=== PATIENT | female | born 1970 | race African-American/Black ===

== ENCOUNTER 2021-05-22 14:33 | Emergency (ER) | payer BC, SELFPAY ==
--- NOTE | ~2021-05-22 | CT_ITS ---
EXAMINATION: CT abdomen pelvis w con DATE: 05/22/2021 17:18 INDICATION: Right-sided abdominal pain, vomiting and shortness of breath TECHNIQUE: Computed tomography (CT) of the abdomen and pelvis was performed with 100 mL Omnipaque-350 intravenous contrast. Automated exposure control and iterative reconstruction technique were employe d. The dose-length product was 403.04 mGy-cm. COMPARISON: None FINDINGS: Lung bases are clear. Heart size is normal. No pericardial or pleural effusion. Focal hepatic steatos is along the ligamentum teres. Gallbladder, spleen, pancreas, bilateral adrenal glands and kidneys ar e normal. Bladder is normal. Uterus and bilateral adnexa are unremarkable. Normal appendix. No bowel obstruction. Single diverticulum along the proximal sigmoid colon without adjacent inflammatory espana e to suggest diverticulitis. Diffuse mild fatty infiltration of the colonic wall likely related to sada dy habitus. No free intraperitoneal gas or fluid. No pathologically enlarged abdominal or pelvic lymp hadenopathy. Relatively symmetric subarticular screws at both sides of the bilateral sacroiliac joint spaces without definitive erosion which could be related to osteoarthritis or nonspecific chronic sa croiliitis. Moderate lumbar facet osteoarthritis. IMPRESSION: 1. No acute intra-abdominal/pelvic process. Reviewed, dictated and finalized at location A. BREAKER
--- NOTE | ~2021-05-22 | XR_ITS ---
EXAMINATION: XR chest 2V DATE: 05/22/2021 15:29 INDICATION: Chest tightness TECHNIQUE: PA and lateral views of the chest were obtained. COMPARISON: None FINDINGS: The lungs are clear with no focal airspace opacities, pulmonary edema, pleural effusion or pneumothor ax. The cardiomediastinal silhouette is normal. Visualized bones and soft tissues are unremarkable. IMPRESSION: 1. No acute cardiopulmonary disease. Reviewed, dictated and finalized at location A. ESS TIER
[2021-05-22 14:43] VITALS: BP 137/97; PULSE 110; RESP 18; TEMP 36.9; O2SAT 99
[2021-05-22 15:01] LABS: Basophils Percent Auto 0.7 % (0.2-1.2); Eosinophils Percent Auto 0.3 % (0-4.4); Hematocrit 40.7 % (37.0-47.0); Hemoglobin 13.1 g/dL (12.0-15.0); Immature Granulocyte Absolute 0.02 K/mm3 (0.00-0.031); Immature Granulocyte Percent A 0.3 % (0-0.5); Lymphocytes Absolute Auto 0.34 K/mm3 (0.9-3.2); Lymphocytes Percent Auto 5.6 % (18.3-44.2); Mean Corpuscular HGB Conc 32.2 g/dl (32-36); Mean Corpuscular Volume 93.3 fl (80-100); Mean Platelet Volume 10.2 fl (7.4-10.4); Monocytes Absolute Auto 0.3 K/mm3 (0.1-0.6); Monocytes Percent Auto 5.5 % (2.6-8.5); Neutrophils Absolute Auto 5.3 K/mm3 (1.3-6.7); Neutrophils Percent Auto 87.6 % (45.5-73.1); Platelet Count Result 192 k/mm3 (150-375); Red Blood Count 4.36 M/mm3 (4.2-5.4); Red Cell Distribution Width 14.1 % (11.5-14.5)
[2021-05-22] MEDS: ONDANSETRON INJ 4 MG/2 ML VIAL IV PUSH (15:01)
[2021-05-22] MEDS: SODIUM CHLORIDE 0.9% IV 1,000 ML 999 ML IV CONT (15:01)
--- NOTE | 2021-05-22 15:01 | ECG_ITS ---
Measurements Intervals [place] Rate: 94 P: 56 HI: 160 QRS: 32 QRSD: 78 T: 48 QT: 342 QTc: 429 Interpretive Statements SINUS RHYTHM MINIMAL VOLTAGE CRITERIA FOR LVH, CONSIDER NORMAL VARIANT [MEETS CRITERIA IN ONE OF: R(aVL), S(V1), R(V5), R(V5/V6)+S(V1)] NO PREVIOUS ECG AVAILABLE FOR COMPARISON Electronically Signed On 05-22-2021 19:35:44 [employer] by Gianna Andrews M.D.
--- NOTE | 2021-05-22 15:02 | ED.NAVMDI ---
HPI - Nausea/Vomiting/Diarrhea General Chief complaint: Nausea/Vomiting/Diarrhea Stated complaint: throwing up Time Seen by Provider: 05/22/21 14:38 Source: patient Mode of arrival: ambulatory Limitations: no limitations History of Present Illness HPI Narrative: This is a 51 year old female that presents to the ER for nausea and vomiting. Reports her daughter just got over the stomach flu. She started to feel unwell yesterday. Today she had several episodes of vomiting. Also reports chest congestion. Denies fever, sore throat, dysuria, or diarrhea. Related Data Allergies Allergy/AdvReac Type Severity Reaction Status Date / Time No Known Allergies Allergy Verified 05/22/21 15:01 Review of Systems Review of Systems: CONSTITUTIONAL: Denies fever ENT: Denies sore throat CARDIOVASCULAR: Reports chest pain. Denies edema. RESPIRATORY: Denies cough or dyspnea. GASTROINTESTINAL: Reports abdominal pain, nausea, vomiting. Denies diarrhea. GENITOURINARY: Denies dysuria All systems reviewed & are unremarkable except as noted in HPI and below PMFSH Past Medical History Medical History (Updated 05/22/21 @ 18:02 by Maxine Soto PA-C) History of hypertension Social History Social History (Updated 05/22/21 @ 15:27 by Maxine Soto PA-C) Substance use: never Exam Narrative: GENERAL: Well-appearing, well-nourished, and in no acute distress. HEAD: Normocephalic, atraumatic. EYES: EOMI. CHEST: Clear to auscultation. No respiratory distress. No wheezes rales or rhonchi HEART: Regular rate and rhythm. No murmur heard. Normal peripheral pulses. ABDOMEN: Soft, nontender, nondistended, normal active bowel sounds. EXTREMITIES: Normal range of motion. No edema. SKIN: Warm, dry, no rash. NEURO: No focal deficits. Alert and oriented x3. PSYCH: Normal mood and affect Course Vital Signs Vital signs: Vital Signs Temperature 98.5 F 05/22/21 14:43 Pulse Rate 110 H 05/22/21 14:43 Respiratory Rate 18 05/22/21 14:43 Blood Pressure 137/97 H 05/22/21 14:43 Pulse Oximetry 99 05/22/21 14:43 Temperature 98.5 F 05/22/21 14:43 Pulse Rate 60 05/22/21 17:44 Respiratory Rate 18 05/22/21 17:44 Blood Pressure 168/72 H 05/22/21 17:44 Pulse Oximetry 99 05/22/21 17:44 MDM - Nausea/Vomiting/Diarrhea MDM Narrative Medical decision making narrative: Patient presents to the emergency department for nausea and vomiting. Also reporting chest congestion/tightness. Reports similar symptoms in her daughter. Patient is afebrile and nontoxic-appearing. Her vitals are stable. CBC without concerning findings. Metabolic panel with mild transaminitis. Lipase is normal. UA without evidence of infection. Bedside test is negative. Influenza screen is negative. Patient is COVID vaccinated. EKG without concerning changes and baseline troponin is negative. Chest x-ray without acute cardiopulmonary abnormality. CT scan of the abdomen and pelvis without acute findings. Patient was updated on case findings. She was instructed on continued care of viral infection. She is to follow-up with her primary care doctor. She was given warnings to return to the ER Lab Data Attestation: I reviewed the patient's lab results. Result diagrams: 05/22/21 14:52 05/22/21 15:47 Labs: Lab Results 05/22/21 05/22/21 05/22/21 Range/Units 14:52 15:07 15:47 WBC 6.0 (4.5-10.0) K/mm3 RBC 4.36 (4.2-5.4) M/mm3 Hgb 13.1 (12.0-15.0) g/dL Hct 40.7 (37.0-47.0) % MCV 93.3 (80-100) fl MCH 30.0 (26-34) pg MCHC 32.2 (32-36) g/dl RDW 14.1 (11.5-14.5) % Plt Count 192 (150-375) k/mm3 MPV 10.2 (7.4-10.4) fl Immature Gran % (Auto) 0.3 (0-0.5) % Neut % (Auto) 87.6 H (45.5-73.1) % Lymph % (Auto) 5.6 L (18.3-44.2) % [place] % (Auto) 5.5 (2.6-8.5) % Eos % (Auto) 0.3 (0-4.4) % Baso % (Auto) 0.7 (0.2-1.2) % Lymph # (Auto) 0.34 L (0.9-3.2
[2021-05-22 15:21] LABS: Add Urine Microscopic? YES; Appearance Urine Clear (Clear); Bilirubin Urine Negative (Negative); Blood Urine 1+ (Negative); Color Urine Yellow (Yellow); Glucose Urine UA Negative (Negative); Ketones Urine Trace mg/dL (Negative); Leukocyte Esterase Ur Negative LEU/UL (Negative); Mucus Urine Rare /lpf; Nitrate Urine Negative (Negative); Protein Urine Negative (Negative); RBC Urine 0-2 /hpf (0-2); Specific Grav Ur 1.015 (1.001-1.035); Squamous Epithelial Cell Urine Occasional /hpf (Few); Urobilinogen Urine Negative mg/dL (<2.0); WBC Urine 0-3 /hpf
[2021-05-22 16:02] LABS: Alanine Aminotransferase 53 U/L (4-35); Albumin Level 4.6 g/dL (3.5-5.1); Alkaline Phosphatase 179 U/L (38-126); Anion Gap 9 mmol/L (8-16); Aspartate Amino Transferase 150 U/L (14-36); Bilirubin,Total 1.2 mg/dL (0.2-1.3); Blood Urea Nitrogen 7 mg/dL (7-17); Calcium 8.7 mg/dL (8.4-10.2); Carbon Dioxide 26 mmol/L (22-30); Chloride 101 mmol/L (98-107); Estimated CRCL calculation 84 ml/min; Estimated Glomerular Filt Rate > 60; Glucose 93 mg/dL (65-110); Lipase 183 U/L (23-300); Sodium 136 mmol/L (137-145)
[2021-05-22 16:04] LABS: INR 0.9; Prothrombin Time 11.9 Seconds (11.1-14.7)
[2021-05-22 16:05] LABS: Partial Thromboplastin Time 27.5 SECONDS (22.3-36.8)
[2021-05-22 16:14] LABS: Troponin I < 0.012 ng/mL (0.000-0.034)
[2021-05-22 17:44] VITALS: BP 168/72; PULSE 60; RESP 18; O2SAT 99
== END 2021-05-22 18:17 | disposition home or self-care (01) ==
PROVIDERS: Physician Assistant; Emergency Provider Emergency Medicine
DX: B34.9 Viral infection, unspecified (principal); I10 Essential (primary) hypertension
CPT/HCPCS: 36415; 71046; 74177; 80053; 81001; 81025; 83690; 84484; 85025; 85055; 85610; 85730; 87804; 93005; 96361; 96374; 99284; J2405; J7030; Q9967